=== PATIENT | female | born 1955 | race Caucasian/White ===

== ENCOUNTER → 2017-09-07 | Outpatient (CLI) | payer OTHER ==
[~2017-09-07] MED LIST: LEVO137T3 PO; LINA290C PO; PANT40TA5 PO; PARO40TA61 PO
== END | disposition home or self-care (01) ==
LOC: STAR 10:49
PROVIDERS: ATTEND Thoracic Surgery (Cardiothoracic Vascular Surgery)
DX: Z01.818 Encounter for other preprocedural examination (principal); K43.9 Ventral hernia without obstruction or gangrene; F41.9 Anxiety disorder, unspecified; F32.9 Major depressive disorder, single episode, unspecified; K21.9 Gastro-esophageal reflux disease without esophagitis; E03.9 Hypothyroidism, unspecified
CPT/HCPCS: 93005

== ENCOUNTER 2017-09-15 05:57 | Day surgery (SDC) | payer OTHER ==
[~2017-09-15] VITALS: Ht 165.1 cm; Wt 82.0 kg
[2017-09-15] MEDS ORDERED: LACTATED RINGERS 1,000 ML IV SCH ×2 (06:36→09:16)
[2017-09-15] MEDS ORDERED: BUPIVACAINE/PF 0.5% ONE (07:03)
[2017-09-15] MEDS ORDERED: EPINEPHRINE 1 MG/ML, 1ML ONE (07:03)
[2017-09-15] MEDS ORDERED: MIDAZOLAM 1 MG/ML, 2ML ONE ×2 (07:06→09:57)
[2017-09-15] MEDS ORDERED: FENTANYL PF 100 MCG/2ML ONE ×3 (07:06→09:18)
[2017-09-15] MEDS ORDERED: KETOROLAC 30 MG/1 ML ONE (07:28)
[2017-09-15] MEDS ORDERED: NEOSTIGMINE 1 MG/ML, 10ML ONE (08:24)
[2017-09-15] MEDS ORDERED: SUCCINYLCHOLINE 20 MG/ML, 10ML ONE (08:24)
[2017-09-15] MEDS ORDERED: GLYCOPYRROLATE 0.2MG/1ML, 5ML ONE (08:24)
[2017-09-15] MEDS ORDERED: CEFAZOLIN 1,000 MG ONE (08:24)
[2017-09-15] MEDS ORDERED: ROCURONIUM 10 MG/ML,10ML ONE (08:24)
[2017-09-15] MEDS ORDERED: PROPOFOL 10 MG/ML, 20ML ONE (08:24)
[2017-09-15] MEDS ORDERED: DEXAMETHASONE 4 MG/ML, 1ML ONE (08:24)
[2017-09-15] MEDS ORDERED: ONDANSETRON 2MG/ML, 2ML ONE (08:24)
[2017-09-15] MEDS ORDERED: METOPROLOL 1 MG/ML, 5ML IV PRN (08:30)
[2017-09-15] MEDS ORDERED: EPHEDRINE 50 MG/ML, 1ML IVPush PRN (08:30)
[2017-09-15] MEDS ORDERED: MIDAZOLAM 1 MG/ML, 2ML IV PRN (08:30)
[2017-09-15] MEDS ORDERED: DIAZEPAM 5 MG/ML, 2ML IVPush PRN (08:30)
[2017-09-15] MEDS ORDERED: hydrALAzine 20 MG/ML, 1ML IV PRN (08:30)
[2017-09-15] MEDS ORDERED: ACETAMINOPHEN 325 MG TABLET PO PRN (08:30)
[2017-09-15] MEDS ORDERED: ALBUTEROL SULFATE 2.5 MG/3 ML NPPB PRN (08:30)
[2017-09-15] MEDS ORDERED: MEPERIDINE/PF 25MG/0.5ML IVPush PRN (08:30)
[2017-09-15] MEDS ORDERED: LABETALOL 5MG/ML, 20ML IV PRN (08:30)
[2017-09-15] MEDS ORDERED: HYDROcodone/APAP 7.5-325MG/15ML UDC PO PRN (08:30)
[2017-09-15] MEDS ORDERED: PROMETHAZINE 25 MG/ML, 1ML IV PRN (08:30)
[2017-09-15] MEDS ORDERED: ONDANSETRON 2MG/ML, 2ML IVPush PRN ×2 (08:30→09:30)
[2017-09-15] MEDS ORDERED: ACETAMINOPHEN 650 MG/20.3 ML UDC ONE (09:17)
[2017-09-15] MEDS ORDERED: OXYcodone 5 MG/5 ML ORAL.SOL UDC ONE ×2 (09:18→09:50)
[2017-09-15] MEDS: FENTANYL PF 100 MCG/2ML IV PRN ×2 (09:21→09:27)
[2017-09-15] MEDS: OXYcodone 5 MG/5 ML ORAL.SOL UDC PO PRN ×2 (09:22→09:51)
[2017-09-15] MEDS ORDERED: morphine SULFATE 10 MG/ML, 1ML IVPush PRN (09:30)
[2017-09-15] MEDS ORDERED: HYDROcodone/APAP 5/325 TABLET PO PRN ×2 (09:30→14:00)
[2017-09-15] MEDS ORDERED: HYDROmorphone 2 MG/ML, 1ML ONE (09:37)
[2017-09-15] MEDS: HYDROmorphone 1 MG/ML, 1ML IV PRN ×3 (09:39→10:04)
[2017-09-15] MEDS ORDERED: MEPERIDINE/PF 25MG/0.5ML ONE (10:09)
== END 2017-09-15 14:35 | disposition home or self-care (01) ==
LOC: OUT 05:57
PROVIDERS: ATTEND Thoracic Surgery (Cardiothoracic Vascular Surgery)
DX: K43.9 Ventral hernia without obstruction or gangrene (principal); F41.9 Anxiety disorder, unspecified; F32.9 Major depressive disorder, single episode, unspecified; K21.9 Gastro-esophageal reflux disease without esophagitis; E03.9 Hypothyroidism, unspecified; Z98.890 Other specified postprocedural states
CPT/HCPCS: 49653; J0171; J0330; J0690; J1100; J1170; J1885; J2175; J2250; J2405; J2704; J2710; J3010; J3490; J7120; S2900; C1781